=== PATIENT | female | born 1970 | race Asian ===

== ENCOUNTER 2023-06-13 04:45 | Day surgery (SDC) | payer OTHER ==
[2023-06-10 15:12] VITALS: BMI 30.9
[2023-06-13 11:48] VITALS: RESP 18; TEMP 97.3
[2023-06-13 13:39] VITALS: BP 122/74; PULSE 50
[2023-06-13 13:51] LABS: EOS % 3.2 % (0-4.5); HEMATOCRIT 42.4 % (32.4-45.2); HEMOGLOBIN 14.4 GM/dL (10.7-15.3); LYMPH % 26.4 % (8-40); MCH 29.1 pg (25.7-33.7); MEAN CELL VOLUME 85.5 fl (80-96); MEAN PLT VOLUME 8.3 fl (7.5-11.1); MONO % 7.3 % (3.8-10.2); NEUT % 62.1 % (42.8-82.8); PLATELET COUNT 243 10^3/uL (134-434); RBC 4.96 M/mm3 (3.60-5.2); RDW 13.6 % (11.6-15.6); WHITE BLOOD COUNT 6.9 K/mm3 (4.0-10.0)
[2023-06-13 14:07] LABS: POTASSIUM 3.5 mmol/L (3.5-5.1)
[2023-06-13 14:10] LABS: ALBUMIN 3.6 g/dl (3.4-5.0); BLOOD UREA NITROGEN 3.8 mg/dL (7-18); CALCIUM 9.3 mg/dL (8.5-10.1)
[2023-06-13 14:12] LABS: CREATININE 0.5 mg/dL (0.55-1.3)
[2023-06-13 14:14] LABS: BILIRUBIN,TOTAL 0.4 mg/dL (0.2-1); TOT PROT 7.3 g/dl (6.4-8.2)
== END 2023-06-13 13:39 | disposition home or self-care (01) ==
LOC: JASU-ENDO 04:45
PROVIDERS: ATTEND Internal Medicine Gastroenterology
PROC: 0DBP8ZX Excision of Rectum, Via Natural or Artificial Opening Endoscopic, Diagnostic (ICD-10-PCS; principal; 2023-06-13 11:00)
DX: Z12.11 Encounter for screening for malignant neoplasm of colon (principal); D12.8 Benign neoplasm of rectum; K64.8 Other hemorrhoids
CPT/HCPCS: 36415; 80053; 81025; 82962; 83690; 85025; 88305-TC